=== PATIENT | female | born 1980 | race Caucasian/White ===

== ENCOUNTER 2019-09-17 10:04 | Emergency (ER) | payer OTHER, SELFPAY ==
[2019-09-17 10:39] VITALS: BP 118/87; PULSE 100; RESP 18; TEMP 37; O2SAT 100
--- NOTE | 2019-09-17 11:06 | ED.URI ---
HPI - URI/Sore Throat General Chief Complaint: Upper Respiratory Infection Stated Complaint: nasal congestion/tooth pn Time Seen by Provider: 09/17/19 11:05 Source: patient Mode of arrival: ambulatory Limitations: no limitations History of Present Illness HPI Narrative: Danielle Schultz is a 39 yo female with a PMH of recurrent sinus problems who comes to urgent exress care with congestion and sinus drainage x4 days Related Data Home Medications Medication Instructions Recorded Confirmed fluticasone propionate INTRANASAL 09/17/19 loratadine mg 09/17/19 Allergies Allergy/AdvReac Type Severity Reaction Status Date / Time No Known Allergies Allergy Unverified 09/17/19 10:45 Review of Systems Review of Systems: Narrative: CONSTITUTIONAL: Denies fever, chills, sweats. EYES: Denies visual changes, redness, discharge. ENT: Denies rhinorrhea, has congestion, has sore throat, no otalgia. CARDIOVASCULAR: Denies chest pain, palpitations, edema. RESPIRATORY: Denies dyspnea, wheezing, cough GASTROINTESTINAL: Denies abdominal pain, nausea, vomiting, diarrhea. GENITOURINARY: Denies dysuria, hematuria, abnormal discharge SKIN: Denies rash or itching. MUSCULOSKELETAL: Denies acute back pain, joint pain, or myalgia. NEUROLOGIC: Denies numbness, or focal weakness. PSYCHIATRIC: Denies anxiety or depression. PMFSH Family History Family History Other Diabetes mellitus Social History Social History (Updated 09/17/19 @ 11:09 by Radha Lebron CNP) Smoking status: Never smoker Alcohol intake: never Comments At time of signature, I agree with nursing past medical, surgical, social and family history. There is no relevant family history pertinent to the presenting complaint. Exam Narrative: Exam Narrative: GENERAL: This is a well-nourished, well-developed patient, in no apparent distress. HEAD: normocephalic, atraumatic. EYES: PERRL. Sclera clear/white. Vision is grossly intact. EARS: External ears normal, auditory canals clear and without drainage, TMs normal without perforation. Hearing grossly intact. NOSE: External nose normal with no obvious nasal discharge, nares with redness, with rhinorrhea. THROAT: Mucous membranes moist, posterior pharynx erythema with edema NECK: Neck supple, non-tender CARDIOVASCULAR: Regular rate and rhythm without murmurs, gallops, or rubs. RESPIRATORY: Clear to auscultation. Breath sounds equal bilaterally. No wheezes, rales, or rhonchi. GASTROINTESTINAL: Abdomen soft, non-tender, SKIN: warm, intact with no suspicious lesions or rash, NEURO: awake, alert, and oriented to person, place and time. There were no obvious focal neurologic abnormalities. Steady gait EXTREMITIES: Normal range of motion. No edema. BACK: Nontender without deformity or crepitance. No flank tenderness. Course Course Emergency Course: started on predmisone and mucinex Vital Signs Vital signs: Vital Signs Temperature 98.6 F 09/17/19 10:39 Pulse Rate 100 09/17/19 10:39 Respiratory Rate 18 09/17/19 10:39 Blood Pressure 118/87 09/17/19 10:39 Pulse Oximetry 100 09/17/19 10:39 Temperature 98.6 F 09/17/19 10:39 Pulse Rate 100 09/17/19 10:39 Respiratory Rate 18 09/17/19 10:39 Blood Pressure 118/87 09/17/19 10:39 Pulse Oximetry 100 09/17/19 10:39 MDM - URI/Sore Throat Differential Diagnosis Differential diagnosis: Likely sinusitis, pharyngitis and other Discharge Plan Discharge Clinical Impression: Sinusitis Qualifiers: Sinusitis location: maxillary Chronicity: acute Recurrence: recurrent Qualified Code(s): J01.01 - Acute recurrent maxillary sinusitis Patient Disposition: Home, Self-Care Condition: Stable Instructions: Sinusitis (ED) Prescriptions: New pseudoephedrine-guaifenesin [Mucinex D] 60-600 mg tablet extended release 12 hr 1 tablet PO BID PRN (Reason: cold symptoms) Qty: 30 RF: 0 p
== END 2019-09-17 11:16 | disposition home or self-care (01) ==
PROVIDERS: Emergency Provider Nurse Practitioner; PCP Nurse Practitioner Adult Health
DX: J01.01 Acute recurrent maxillary sinusitis (principal)
CPT/HCPCS: 99213; G0463

== ENCOUNTER → 2019-10-02 17:41 | Outpatient (CLI) | payer OTHER, SELFPAY ==
--- NOTE | ~2019-10-02 | MM_ITS ---
EXAMINATION: MM screening [facility] HISTORY: Screening mammogram TECHNIQUE: Craniocaudal and mediolateral oblique 3-D tomosynthesis images were obtained and synthetic 2-D images were generated. CAD analysis was submitted and interpreted. COMPARISON: 09/23/2018, 09/06/2011 BREAST PARENCHYMAL COMPOSITION: There are scattered areas of fibroglandular density. FINDINGS: There is a stable low-density mass in the posterior third of the lower inner left breast, m ost consistent with a cyst or fibroadenoma. There is no evidence of suspicious mass, calcification, o r architectural distortion to suggest malignancy in either breast. There has been no suspicious inter brian change. IMPRESSION: 1. No mammographic evidence of malignancy. 2. Recommend routine screening mammography in one year. BI-RADS Category 2: Benign finding(s). Reviewed, dictated and finalized at location A. T SPECIALIST
== END ==
PROVIDERS: PCP Nurse Practitioner Adult Health; Visit Provider Nurse Practitioner Obstetrics & Gynecology
DX: Z12.31 Encounter for screening mammogram for malignant neoplasm of breast (principal)
CPT/HCPCS: 77063; 77067

== ENCOUNTER → 2020-10-12 11:23 | Outpatient (CLI) | payer OTHER, SELFPAY ==
--- NOTE | ~2020-10-12 | MM_ITS ---
EXAMINATION: MM screening [facility] BI w andrew HISTORY: Screening mammogram TECHNIQUE: Craniocaudal and mediolateral oblique 3-D tomosynthesis images were obtained and synthetic 2-D images were generated. CAD analysis was submitted and interpreted. COMPARISON: 10/02/2019, 09/23/2018, 09/06/2011 BREAST PARENCHYMAL COMPOSITION: There are scattered areas of fibroglandular density. FINDINGS: A stable low-density mass is again noted in the posterior third of the lower inner left isamar ast, consistent with a benign finding. There is no evidence of suspicious mass, calcification, or arc hitectural distortion to suggest malignancy in either breast. There has been no suspicious interval c hange. IMPRESSION: 1. No mammographic evidence of malignancy. 2. Recommend routine screening mammography in one year. BI-RADS Category 1: Negative Reviewed, dictated and finalized at location A. ARIN SPEAKING NANNY
== END ==
PROVIDERS: PCP Nurse Practitioner Adult Health; Visit Provider Advanced Practice Midwife
DX: Z12.31 Encounter for screening mammogram for malignant neoplasm of breast (principal)
CPT/HCPCS: 77063; 77067

== ENCOUNTER → 2021-11-29 16:44 | Outpatient (CLI) | payer OTHER, SELFPAY ==
--- NOTE | ~2021-11-29 | MM_ITS ---
EXAMINATION: MM screening [facility] BI w andrew HISTORY: Screening TECHNIQUE: Craniocaudal and mediolateral oblique 3-D tomosynthesis images were obtained and synthetic 2-D images were generated. CAD analysis was submitted and interpreted. COMPARISON: Comparison to multiple prior studies sequentially, with oldest reviewed study dated 12/2018. BREAST PARENCHYMAL COMPOSITION: There are scattered areas of fibroglandular density. FINDINGS: There are developing focal asymmetries in the right breast which are obscured by fibrogland ular tissue. The left breast is stable without evidence for malignancy. IMPRESSION: 1. Developing right breast asymmetries. 2. Additional mammographic views and possible breast ultrasound are recommended. BI-RADS Category 0: Incomplete: Needs additional imaging evaluation. Reviewed, dictated and finalized at location A. IMPRESSION: 1. Developing right breast asymmetries. 2. Additional mammographic views and possible breast ultrasound are recommended . BI-RADS Category 0: Incomplete: Needs additional imaging evaluation.
== END ==
PROVIDERS: PCP Nurse Practitioner Adult Health; Visit Provider Nurse Practitioner Obstetrics & Gynecology
DX: Z12.31 Encounter for screening mammogram for malignant neoplasm of breast (principal); R92.8 Other abnormal and inconclusive findings on diagnostic imaging of breast
CPT/HCPCS: 77063; 77067

== ENCOUNTER → 2021-12-27 08:10 | Outpatient (CLI) | payer OTHER, SELFPAY ==
--- NOTE | ~2021-12-27 | MMUS_ITS ---
EXAMINATION: MM diagnostic rao RT w andrew, US breast RT limited HISTORY: Swelling and tenderness of the right breast TECHNIQUE: Additional 3-D tomosynthesis images of the right breast were performed and synthetic 2-D i mages were generated. CAD analysis was submitted and interpreted. High resolution Limited right breas t ultrasound was performed. COMPARISON: Comparison to multiple prior studies sequentially, with oldest reviewed study dated 12/2018. BREAST PARENCHYMAL COMPOSITION: Breast composed of scattered areas of fibroglandular density FINDINGS: MAMMOGRAPHIC FINDINGS: There are small masses involving the medial aspect of the right breast, middle third. These masses ar e not well visualized on medial lateral or spot MLO views. No suspicious calcifications or architectu ral distortion. ULTRASOUND: Limited left breast ultrasound: At 12:00 near the areola there is a 5 mm cyst. At 2:00, 4 cm from the nipple there is a small cluster of cysts measuring up to 5 mm. At 8-9:00, 5 cm from the nipple, ther e is a small 3 mm cyst. No suspicious masses to suggest malignancy. IMPRESSION: 1. No evidence for malignancy in the right breast. Benign findings. 2. Routine yearly screening mammogram and regular clinical breast examination are recommended. BI-RADS Category 2: Benign finding(s). Reviewed, dictated and finalized at location A. IMPRESSION: 1. No evidence for malignancy in the right breast. Benign findings. 2. Routine yearly screening mammogram and regular clinical breast examination a re recommended. BI-RADS Category 2: Benign finding(s).
== END ==
PROVIDERS: PCP Nurse Practitioner Adult Health; Visit Provider Nurse Practitioner Obstetrics & Gynecology
DX: N63.10 Unspecified lump in the right breast, unspecified quadrant (principal)
CPT/HCPCS: 76642; 77061; 77065; G0279

== ENCOUNTER 2022-07-19 12:12 | Emergency (ER) | payer OTHER, SELFPAY ==
[2022-07-19 12:23] VITALS: BP 135/90; PULSE 115; RESP 18; TEMP 36.9; O2SAT 100
--- NOTE | 2022-07-19 12:51 | ED.URI ---
HPI - URI/Sore Throat General Chief Complaint: Upper Respiratory Infection Stated Complaint: Congestion,Cough,Body Aches Time Seen by Provider: 07/19/22 12:44 Source: patient Mode of arrival: ambulatory Limitations: no limitations History of Present Illness HPI Narrative: Patient presents today with a 3 day history of chills, cough, congestion. Denies fever. She has been using Afrin ibuprofen with some relief. Reports was diagnosed with the flu 2 days prior to onset of her symptoms. Denies shortness of breath or chest pain. Related Data Home Medications Medication Instructions Recorded Confirmed fluticasone propionate 50 1 spray intranasal DAILY 09/17/19 mcg/actuation nasal spray,suspension loratadine 10 mg tablet 10 mg DAILY 09/17/19 Allergies Allergy/AdvReac Type Severity Reaction Status Date / Time No Known Allergies Allergy Verified 07/19/22 12:28 Review of Systems Review of Systems: CONSTITUTIONAL: Denies body aches, fever, or sweats.+ chills EYES: Denies visual changes, redness, or discharge. ENT: Denies rhinorrhea, sore throat, or otalgia.+ Congestion CARDIOVASCULAR: Denies chest pain, palpitations, or edema. RESPIRATORY: Denies dyspnea.+ cough GASTROINTESTINAL: Denies abdominal pain, nausea, vomiting, or diarrhea. GENITOURINARY: Denies dysuria or hematuria. SKIN: Denies rash, itching, or wounds. MUSCULOSKELETAL: Denies back pain, joint pain, or myalgia. NEUROLOGIC: Denies headache, numbness, tingling, or weakness. PSYCH: Denies depression or anxiety. [facility] Family History Family History Other Diabetes mellitus Social History Social History Smoking status: Never smoker Alcohol intake: never Comments At time of signature, I have reviewed and agree with nursing past medical, surgical, social and family history unless otherwise noted. Please see nursing chart for further information. There is no relevant family history pertinent to the presenting complaint Exam Narrative: GENERAL: Well-appearing, well-nourished, and in no acute distress. HEAD: Normocephalic, atraumatic. EYES: EOMI. No redness or drainage. Conjunctivae normal. ENT: Mucous membranes pink and moist. Nares clear. No rhinorrhea. TMs normal bilaterally. Throat mildly erythematous without edema or exudate. Uvula midline. NECK: Normal AROM. Supple. No lymphadenopathy. CHEST: No respiratory distress. Clear to auscultation. HEART: Regular rate and rhythm. No murmur appreciated. Normal peripheral pulses. EXTREMITIES: Normal range of motion. No edema. SKIN: Warm, dry, no rash. Capillary refill normal. Normal skin turgor. NEURO: No focal deficits. Alert and oriented x3. Gait steady. PSYCH: Normal affect. No signs of depression or anxiety. Course Course Level of Care: Express Care Visit Vital Signs Vital signs: Vital Signs Temperature 98.4 F 07/19/22 12:23 Pulse Rate 115 H 07/19/22 12:23 Respiratory Rate 18 07/19/22 12:23 Blood Pressure 135/90 07/19/22 12:23 Pulse Oximetry 100 07/19/22 12:23 Oxygen Delivery Room Air 07/19/22 12:23 Temperature 98.4 F 07/19/22 12:23 Pulse Rate 115 H 07/19/22 12:23 Respiratory Rate 18 07/19/22 12:23 Blood Pressure 135/90 07/19/22 12:23 Pulse Oximetry 100 07/19/22 12:23 Oxygen Delivery Room Air 07/19/22 12:23 Reviewed. Pt has been instructed to follow up with her PCP regarding her elevated blood pressure today. MDM - URI/Sore Throat Differential Diagnosis Differential diagnosis: Likely upper respiratory infection, viral infection and influenza Critical Care Time Critical Care Time Critical Care Time: No Discharge Plan Discharge Clinical Impression: Upper respiratory infection Qualifiers: URI type: unspecified URI Qualified Code(s): J06.9 - Acute upper respiratory infection, unspecified
== END 2022-07-19 13:00 | disposition home or self-care (01) ==
PROVIDERS: Emergency Provider Nurse Practitioner; PCP Nurse Practitioner Adult Health
DX: J06.9 Acute upper respiratory infection, unspecified (principal)
CPT/HCPCS: 87804; 99213; G0463

== ENCOUNTER → 2023-03-12 13:26 | Outpatient (CLI) | payer OTHER, SELFPAY ==
--- NOTE | ~2023-03-12 | MM_ITS ---
EXAMINATION: MM screening [facility]o BI w andrew HISTORY: Screening mammogram TECHNIQUE: Craniocaudal and mediolateral oblique 3-D tomosynthesis images were obtained and synthetic 2-D images were generated. CAD analysis was submitted and interpreted. COMPARISON: 12/27/2021 diagnostic right mammogram and limited right breast ultrasound examination BREAST PARENCHYMAL COMPOSITION: There are scattered areas of fibroglandular density. FINDINGS: Stable bilateral small low-density circumscribed masses. There is no evidence of suspicious mass, calcification, or architectural distortion to suggest malignancy in either breast. There has b een no suspicious interval change. IMPRESSION: 1. No mammographic evidence of malignancy. 2. Recommend routine screening mammography in one year. BI-RADS Category 2: Benign finding(s). Reviewed, dictated and finalized at location L.
== END ==
PROVIDERS: PCP Nurse Practitioner Obstetrics & Gynecology; Visit Provider Nurse Practitioner Obstetrics & Gynecology
DX: Z12.31 Encounter for screening mammogram for malignant neoplasm of breast (principal)
CPT/HCPCS: 77063; 77067

== ENCOUNTER 2024-01-15 06:37 | Day surgery (SDC) | payer OTHER, SELFPAY ==
[2023-12-23 13:13] VITALS: BMI 23.4
[2023-12-30 13:37] VITALS: BMI 22.4
--- NOTE | 2024-01-14 13:55 | WPDANESEPPF ---
Anes - Initial Pre Proc Eval Procedure: Operation Date: 01/15/24 08:30 Proposed Procedures p Screening Colonoscopy - Colin Lieberman MD Date/Time: 01/14/24 13:55 Surgeon: Colin Lieberman MD Pre Op Diagnosis: Screening for neoplasm of colon Patient Data Age: 43 Gender: F Height: 1.55 m Weight: 54 kg Allergies Allergy/AdvReac Type Severity Reaction Status Date / Time No Known Allergies Allergy Verified 01/15/24 07:15 Home Medications Medication Instructions Recorded Confirmed Type fluticasone propionate 50 1 spray intranasal DAILY 09/17/19 01/15/24 History mcg/actuation nasal spray,suspension loratadine 10 mg tablet (Claritin) 10 mg PO DAILY 09/17/19 01/15/24 History calcium carbonate 250 mg-vitamin 1 tablet PO DAILY 12/20/23 01/15/24 History D3 3.125 mcg (125 unit) tablet magnesium oxide 500 mg PO DAILY 12/20/23 01/15/24 History montelukast 10 mg tablet 10 mg PO DAILY #30 tabs 12/20/23 01/15/24 Rx (Singulair) multivitamin 1 tablet PO DAILY 12/20/23 01/15/24 History omega 4-pqp-uyl-fish oil 60 mg-90 1 cap PO DAILY 12/20/23 01/15/24 History mg-500 mg capsule (Fish Oil) psyllium husk 0.4 gram capsule 0.4 g PO DAILY 12/20/23 01/15/24 History (Daily Fiber) turmeric 400 mg capsule 400 mg PO DAILY 12/20/23 01/15/24 History Patient hx anesthesia problems: none Family hx anesthesia problems: none Results Review: All pre-operative results and documents have been reviewed as part of the pre-operative evaluation. [facility] Past Medical History Medical History (Updated 12/20/23 @ 08:49 by Ilda Giang NP) Colon cancer screening Environmental and seasonal allergies Hyperlipidemia Vitamin D deficiency Family History Family History Father Alcoholism Mother Hypertension Grandparent Hypertension Breast cancer Lung cancer Other Diabetes mellitus Social History Social History Smoking status: Former smoker Alcohol intake: unknown Substance use: never Substance use type: does not use Do You Feel Safe in your Home?: Yes Lack of Transportation: No Lack of Food: Never True Current Housing: I Have Housing Concerned About Future Housing: No Difficulty Paying Gas/Electric Bills: No Difficulty Paying for Meds: No Currently Unemployed: No Education: Bachelor's Degree Difficulty w/ Childcare or Family Care: No Living arrangements: with family Occupation/Education: occupation Gender identity (if verbalized by the patient): Female Sexual Orientation (if Verbalized by the Patient): Straight or Heterosexual Spiritual care concerns: No Anes - Eval Final PreProcedure Day of Procedure 01/14/24 13:55 Patient weight: normal Heart: regular rate and rhythm Lungs: clear to auscultation and normal air movement Airway: Mallampati scale class 1 Neurological: alert and oriented Last oral intake: >/= 8 hours ASA classification: II Emergent: no Anesthetic plan: proceed Anesthesia type and monitoring: general GIVS and standard monitoring Results Review: All pre-operative results and documents have been reviewed as part of the pre-operative evaluation. Informed Consent: The patient's anesthetic plan and its attendant risks and benefits were discussed with the patient/family/POA. Questions were solicited and answers provided to the satisfaction of the patient/family/POA.
[2024-01-15 07:16] VITALS: BP 132/91; PULSE 91; RESP 16; TEMP 36.6; O2SAT 100
[2024-01-15] MEDS: LACTATED RINGERS 1,000 ML 150 ML IV CONT (07:18)
--- NOTE | 2024-01-15 08:14 | PM.HPGS ---
History of Present Illness History of Present Illness Consent: Risks, benefits, and alternatives have been discussed and questions answered. Patient agrees to proceed with procedure. Chief complaint: Screening for neoplasm of colon Narrative: Danielle Schultz is a 43 year old female presents for screening colonoscopy. Patient's current weight appetite and bowel movements are normal. Patient denies abdominal pain. She has had no bleeding. Family history is noncontributory. Review of Systems Review of Systems: All systems reviewed & are unremarkable except as noted in HPI and below PMFSH Past Medical History Medical History (Updated 12/20/23 @ 08:49 by Ilda Giang NP) Colon cancer screening Environmental and seasonal allergies Hyperlipidemia Vitamin D deficiency Family History Family History Father Alcoholism Mother Hypertension Grandparent Hypertension Breast cancer Lung cancer Other Diabetes mellitus Social History Social History Smoking status: Former smoker Alcohol intake: unknown Substance use: never Substance use type: does not use Do You Feel Safe in your Home?: Yes Lack of Transportation: No Lack of Food: Never True Current Housing: I Have Housing Concerned About Future Housing: No Difficulty Paying Gas/Electric Bills: No Difficulty Paying for Meds: No Currently Unemployed: No Education: Bachelor's Degree Difficulty w/ Childcare or Family Care: No Living arrangements: with family Occupation/Education: occupation Gender identity (if verbalized by the patient): Female Sexual Orientation (if Verbalized by the Patient): Straight or Heterosexual Spiritual care concerns: No Meds Home Medications and Allergies Home Medications Medication Instructions Recorded Confirmed Type fluticasone propionate 50 1 spray intranasal DAILY 09/17/19 01/15/24 History mcg/actuation nasal spray,suspension loratadine 10 mg tablet (Claritin) 10 mg PO DAILY 09/17/19 01/15/24 History calcium carbonate 250 mg-vitamin 1 tablet PO DAILY 12/20/23 01/15/24 History D3 3.125 mcg (125 unit) tablet magnesium oxide 500 mg PO DAILY 12/20/23 01/15/24 History montelukast 10 mg tablet 10 mg PO DAILY #30 tabs 12/20/23 01/15/24 Rx (Singulair) multivitamin 1 tablet PO DAILY 12/20/23 01/15/24 History omega 3-rkr-ita-fish oil 60 mg-90 1 cap PO DAILY 12/20/23 01/15/24 History mg-500 mg capsule (Fish Oil) psyllium husk 0.4 gram capsule 0.4 g PO DAILY 12/20/23 01/15/24 History (Daily Fiber) turmeric 400 mg capsule 400 mg PO DAILY 12/20/23 01/15/24 History Allergies Allergy/AdvReac Type Severity Reaction Status Date / Time No Known Allergies Allergy Verified 01/15/24 07:15 Vital Signs Vital Signs - 24 hr 01/15/24 07:16 Temperature 97.8 F Pulse Rate 91 Respiratory Rate 16 Blood Pressure 132/91 H Pulse Oximetry 100 Oxygen Delivery Room Air Exam Narrative: Physical exam reveals patient to be alert. Vital signs stable. HEENT exam is unremarkable. Patient is anicteric. Lungs are clear to auscultation and percussion. Heart is without murmur or extra sounds. Abdomen bowel sounds are present soft nontender with no organomegaly. Digital external rectal exam normal. Assessment and Plan Assessment and plan (1) Colon cancer screening: Code(s): Z12.11 - Encounter for screening for malignant neoplasm of colon Status: Acute Assessment and Plan: Patient presents today for screening colonoscopy. She appears to be at average risk for colon polyps. Further recommendations may be given after endoscopy.
[2024-01-15 08:38] VITALS: BP 99/60; PULSE 94; RESP 18; O2SAT 98
[2024-01-15 08:48] VITALS: BP 108/83; PULSE 91; RESP 16; O2SAT 100
[2024-01-15 08:58] VITALS: BP 115/79; PULSE 66; RESP 16; O2SAT 100
--- NOTE | 2024-01-15 12:54 | WPDANESPN ---
Anes - Prog Note Post-Op Date/Time: 01/15/24 12:54 Cardiovascular status: normal Respiratory status: normal Airway patency: baseline Mental status: baseline Post-Op hydration status: normal Vital Signs: Last Vital Signs Temp 36.6 C 01/15/24 07:16 Pulse 66 01/15/24 08:58 Resp 16 01/15/24 08:58 BP 115/79 01/15/24 08:58 Pulse Ox 100 01/15/24 08:58 O2 Del Method Room Air 01/15/24 08:58 Pain Score (VAS): 0 I/O: Intake & Output 01/14/24 01/15/24 01/15/24 23:59 07:59 15:59 Intake Total 400 Balance 400 Post-procedural complaints: none Patient Feedback: Patient satisfied with anesthetic care. Other Findings: Patient vital signs back to baseline. Patient denies nausea and vomiting. Patient's pain under control. Patient OK for discharge.
== END 2024-01-15 09:09 | disposition home or self-care (01) ==
PROVIDERS: PCP Nurse Practitioner Family; Visit Provider Internal Medicine Gastroenterology
PROC: 0DJD8ZZ Inspection of Lower Intestinal Tract, Via Natural or Artificial Opening Endoscopic (ICD-10-PCS; CPT 45378; principal; 2024-01-15 08:30)
DX: Z12.11 Encounter for screening for malignant neoplasm of colon (principal); K57.30 Diverticulosis of large intestine without perforation or abscess without bleeding; K64.8 Other hemorrhoids
CPT/HCPCS: 45378

== ENCOUNTER 2024-04-15 13:14 | Outpatient (CLI) | payer OTHER, SELFPAY ==
--- NOTE | ~2024-04-15 | MM_ITS ---
EXAMINATION: MM screening [facility]o BI w andrew HISTORY: Screening TECHNIQUE: Craniocaudal and mediolateral oblique 3-D tomosynthesis images were obtained and synthetic 2-D images were generated. CAD analysis was submitted and interpreted. COMPARISON: Comparison to multiple prior studies sequentially, with oldest reviewed study dated 12/2018. BREAST PARENCHYMAL COMPOSITION: Not dense: There are scattered areas of fibroglandular density. FINDINGS: There is no evidence of suspicious mass, calcification, or architectural distortion to sugg est malignancy in either breast. There has been no suspicious interval change. IMPRESSION: 1. No mammographic evidence of malignancy. 2. Recommend routine screening mammography in one year. BI-RADS Category 1: Negative Reviewed, dictated and finalized at location B.
== END 2024-04-15 13:15 ==
LOC: MICIMG 13:15
PROVIDERS: PCP Nurse Practitioner Family; Visit Provider Nurse Practitioner
DX: Z12.31 Encounter for screening mammogram for malignant neoplasm of breast (principal)
CPT/HCPCS: 77063; 77067

== ENCOUNTER 2025-04-30 08:14 | Outpatient (CLI) | payer OTHER, SELFPAY ==
--- NOTE | ~2025-04-30 | MM_ITS ---
EXAMINATION: MM screening rao BI w andrew HISTORY: Screening TECHNIQUE: Craniocaudal and mediolateral oblique 3-D tomosynthesis images were obtained and synthetic 2-D images were generated. CAD analysis was submitted and interpreted. COMPARISON: Comparison to multiple prior studies sequentially, with oldest reviewed study dated , 09/23/2018 BREAST PARENCHYMAL COMPOSITION: There are scattered areas of fibroglandular density. FINDINGS: There is no evidence of suspicious mass, calcification, or architectural distortion to suggest malignancy in either breast. IMPRESSION: 1. No mammographic evidence of malignancy. 2. Recommend routine screening mammography in one year. BI-RADS Category 1: Negative Reviewed, dictated and finalized at location B.
== END 2025-04-30 08:15 | disposition home or self-care (01) ==
LOC: MICIMG 08:15
PROVIDERS: PCP Nurse Practitioner Family; Visit Provider Nurse Practitioner
DX: Z12.31 Encounter for screening mammogram for malignant neoplasm of breast (principal)
CPT/HCPCS: 77063; 77067